=== PATIENT | male | born 1950 | race Caucasian/White ===

== ENCOUNTER 2019-03-18 08:33 | Outpatient (CLI) | payer OTHER ==
[~2019-03-18] VITALS: Ht 182.9 cm; Wt 95.8 kg
[2019-03-18] VITALS (7 sets, daily range): BP systolic 152–164; BP diastolic 89–104; PULSE 52–64
[~2019-03-18 08:33] MED LIST: ASPIRIN 81M81 MG/TA2 PO; DESYREL 50MG50 MG PO; DIOVAN 160MG160 MG PO; HCTZ12.5TAB PO; LIPITOR 40MG TA40 MG PO; MAG-TAB SR84 MG PO; THE MEDICINE S200 M2 PO; ZOLOFT 100MG100 MG PO
--- NOTE | 2019-03-18 10:37 | NUR ---
Transferred by cart from Radiology. Alert and oriented, c/o back pain 6/10 on pain scale aching chronic back pain. VSS.
--- NOTE | 2019-03-18 12:40 | NUR ---
Discharge instructions given. Transferred to private car by pk
== END 2019-03-18 12:45 | disposition home or self-care (01) ==
LOC: COL.RAD 08:33
DX: M54.5 Low back pain (principal); G89.29 Other chronic pain
CPT/HCPCS: Q9965